=== PATIENT | male | born 1985 | race Caucasian/White ===

== ENCOUNTER 2021-09-24 03:34 | Emergency (ER) | payer OTHER ==
[~2021-09-24] VITALS: Ht 182.9 cm; Wt 104.0 kg
[2021-09-24] MEDS ORDERED: ACETAMINOPHEN 325MG TABLET PO ONE (04:00)
[2021-09-24] MEDS ORDERED: TETANUS, DIPHTHERIA, PERTUSSIS VAC/PF 0.5ML (>10YR OLD) IM ONE (04:00)
[2021-09-24] MEDS ORDERED: HYDR-4001 MT (05:31)
[2021-09-24] MEDS ORDERED: IBUP-2028 MT (05:31)
[2021-09-24 06:03] VITALS: BP 121/81
== END 2021-09-24 06:41 | disposition home or self-care (01) ==
LOC: ER 03:57
DX: S52.602A Unspecified fracture of lower end of left ulna, initial encounter for closed fracture (principal); Y04.0XXA Assault by unarmed brawl or fight, initial encounter; Y93.89 Activity, other specified; Y92.89 Other specified places as the place of occurrence of the external cause; Y99.8 Other external cause status
CPT/HCPCS: 29125; 70486; 73090; 73590; 73610; 90471; 90715; 99284; A4565